=== PATIENT | male | born 1970 | race Caucasian/White ===

== ENCOUNTER 2016-12-06 07:03 | Emergency (ER) | payer BC ==
[~2016-12-06] VITALS: Ht 185.4 cm; Wt 120.0 kg
[~2016-12-06 07:03] MED LIST: ATROVENT 00.5 MG/2.5 IH; Advair 250/50 Diskus IH; BENTYL10 MG PO; CIALIS2.5 MG PO; CLARITIN10 MG PO; FLAGYL500 MG PO; Flonase BOTH NARES; Flovent 220 mcg IH; GRALISE600 MG PO; LO-DOSE ASPIRIN81 M1 PO; LORCET 5-325 M1 EACH PO; MOTRIN800 MG PO; NORVASC5 MG PO; Naprosyn PO; Norvasc PO; PERCOCET 5/31 TABLET PO; PREDNISONE50 MG PO; PRILOSEC40 MG PO; PROMETHAZINE HC25 M1 PO; Phenergan PO; Proventil,Ventolin H IH; ROBITUSSIN AC,T10 ML PO; Roxicet,Percocet 5/3 PO; SYMBICORT60 INHALAT IH; TOPROL XL50 MG PO; Tessalon Perle PO; Toprol XL PO; ZITHROMAX250 MG PO; ZOFRAN4 MG PO; Zithromax PO; predniSONE PO
[2016-12-06 08:00] LABS: HEMATOCRIT 37.9 % (38.0-50.0); MCH 31.2 PG (29.0-34.0); MCHC 36.4 G/DL (30.0-36.0); MCV 85.6 FL (86-99); PLATELET COUNT 175 K/uL (156-360); RBC DIS.WIDTH-CV 11.9 % (11.8-14.6); RBC DIS.WIDTH-SD 35.7 % (39-53); RED BLOOD COUNT 4.43 M/uL (4.00-5.50); WHITE BLOOD COUNT 5.5 K/uL (4.1-10.2)
[2016-12-06 08:24] LABS: ANION GAP 7 MEQ/L (2-14); CHLORIDE 104 MEQ/L (99-109); POTASSIUM 3.7 MEQ/L (3.7-5.4); SAMPLE HEMOLYSIS CHECK 0; SAMPLE ICTERIC CHECK 0; SAMPLE LIPEMIA CHECK 0; SODIUM 139 MEQ/L (136-147); TOTAL BILIRUBIN 0.8 MG/DL (0.0-1.0)
[2016-12-06 08:30] LABS: ALKALINE PHOSPHATASE 67 IU/L (3-129); GFR ESTIMATE (CALCULATED) > 59 mL/min/; GLUCOSE 101 mg/dL (70-99); LIPASE 14 U/L (1.0-51.0); UREA NITROGEN (BUN) 21 mg/dL (9-23)
[2016-12-06 09:28] VITALS: BP 126/73
== END 2016-12-06 09:25 | disposition home or self-care (01) ==
LOC: EME 07:03
DX: R10.11 Right upper quadrant pain (principal); K92.0 Hematemesis; J45.909 Unspecified asthma, uncomplicated; Z87.01 Personal history of pneumonia (recurrent); I10 Essential (primary) hypertension
CPT/HCPCS: 80053; 81003; 83690; 85027; 99281; 99284

== ENCOUNTER 2017-03-10 04:51 | Observation (INO) | payer BC ==
[~2017-03-10] VITALS: Ht 185.4 cm; Wt 119.3 kg
[2017-03-10 05:42] LABS: CHLORIDE 107 mEq/L (99-109); SODIUM 140 mEq/L (136-147)
[2017-03-10 05:43] LABS: GLUCOSE 109 mg/dL (70-99); HEMATOCRIT 42.3 % (38.0-50.0); MCH 31.3 PG (29.0-34.0); MCHC 35.9 G/DL (30.0-36.0); MEAN PLAT.VOLUME 11.3 uM^3 (9.0-12.4); PLATELET COUNT 201 K/uL (156-360); RBC DIS.WIDTH-CV 11.5 % (11.8-14.6); RBC DIS.WIDTH-SD 36.5 % (39-53); RED BLOOD COUNT 4.86 M/uL (4.00-5.50); WHITE BLOOD COUNT 5.8 K/uL (4.1-10.2)
[2017-03-10 05:45] LABS: ANION GAP 8 MEQ/L (2-14)
[2017-03-10 05:47] LABS: GFR ESTIMATE (CALCULATED) > 59 mL/min/
[2017-03-10 05:48] LABS: UREA NITROGEN (BUN) 12 mg/dL (9-23)
[2017-03-10 05:52] LABS: TROP-I INTERPRETATION NEGATIVE; TROPONIN-I < 0.01 ng/mL (0.0-0.30)
[2017-03-10] MEDS ORDERED: OMEPRAZOLE40 M1 PO (07:57)
[2017-03-10 09:30] VITALS: BP 124/75
[2017-03-10 12:24] VITALS: BP 122/79
[2017-03-10 12:48] LABS: TROP-I INTERPRETATION NEGATIVE; TROPONIN-I < 0.01 ng/mL (0.0-0.30)
[2017-03-10 19:35] LABS: TROP-I INTERPRETATION NEGATIVE; TROPONIN-I < 0.01 ng/mL (0.0-0.30)
[2017-03-10 20:41] VITALS: BP 134/83
[2017-03-11 00:30] VITALS: BP 123/73
[2017-03-11 04:29] VITALS: BP 105/64
[2017-03-11 07:07] VITALS: BP 122/77
[2017-03-11 07:24] LABS: Estimated Average Glucose 91 mg/dL (70-123); HEMOGLOBIN A1c (GLYCOHEMOGLOB) 4.8 % HGB (Below 5.7)
[2017-03-11 07:35] LABS: HDL CHOLESTEROL 30 MG/DL (Desirable>=40); LDL CHOLESTEROL 58 mg/dL (Desirable<100); NON-HDL CHOLESTEROL 77 mg/dL (Desirable<160); TOTAL CHOLESTEROL 107 mg/dL (Desirable<200); TRIGLYCERIDES 97 MG/DL (Normal: <150)
== END 2017-03-11 12:13 | disposition home or self-care (01) ==
LOC: EME 04:51 → 5WEST 08:01 → EDOF 08:01 → 5WEST 09:21
PROVIDERS: Hospitalist; Nurse Practitioner Adult Health
DX: R07.9 Chest pain, unspecified (principal); R10.11 Right upper quadrant pain; I10 Essential (primary) hypertension; D80.3 Selective deficiency of immunoglobulin G [IgG] subclasses
CPT/HCPCS: 71020; 80048; 80061; 83036; 84484; 85027; 85379; 93005; 99281; 99285; G0378; J2270

== ENCOUNTER 2018-07-23 07:05 | Day surgery (SDC) | payer BC ==
[~2018-07-23] VITALS: Ht 185.4 cm; Wt 126.1 kg
[~2018-07-23 07:05] MED LIST changes: +FLEXERIL5 MG PO; -GRALISE600 MG PO; +NEURONTIN100 MG PO; +NEURONTIN300 MG PO; +OMEPRAZOLE40 M1 PO
== END 2018-07-23 08:35 | disposition home or self-care (01) ==
LOC: PAIN 07:05 → SDC 07:30 → PAIN 07:30
DX: M47.12 Other spondylosis with myelopathy, cervical region (principal); M50.31 Other cervical disc degeneration, high cervical region; M48.02 Spinal stenosis, cervical region; M79.7 Fibromyalgia; K21.9 Gastro-esophageal reflux disease without esophagitis; I10 Essential (primary) hypertension; E66.9 Obesity, unspecified; Z68.36 Body mass index [BMI] 36.0-36.9, adult; Z79.82 Long term (current) use of aspirin; Z79.891 Long term (current) use of opiate analgesic
CPT/HCPCS: J1030; J2250; J3010; S0020

== ENCOUNTER 2018-07-30 07:04 | Day surgery (SDC) | payer BC ==
[~2018-07-30] VITALS: Ht 185.4 cm; Wt 126.1 kg
== END 2018-07-30 08:52 | disposition home or self-care (01) ==
LOC: PAIN 07:04
DX: M47.812 Spondylosis without myelopathy or radiculopathy, cervical region (principal); M50.90 Cervical disc disorder, unspecified, unspecified cervical region; M48.02 Spinal stenosis, cervical region; M79.7 Fibromyalgia; G89.29 Other chronic pain; I10 Essential (primary) hypertension; G40.909 Epilepsy, unspecified, not intractable, without status epilepticus
CPT/HCPCS: J1030; J2250; J3010; S0020